=== PATIENT | male | born 1955 | race Caucasian/White ===

== ENCOUNTER → 2017-02-20 | Outpatient (CLI) | payer BC ==
--- NOTE | 2017-02-20 13:35 | P.STRESS ---
- Stress Test Note Stress Test Results/Findings: Exam Performed: stress echo exercise with con Exam Date: 02/20/17 Reason for Exam: SHORTNESS OF BREATH Height: 5 ft 10 in Weight: 102.512 kg Protocol: SONIDO Stage: 4 Duration of Exercise: 9:30 Resting Heart Rate: 66 Resting Blood Pressure: 149/60 Maximum Achieved Heart Rate: 145 Maximum Achieved Blood Pressure: 220/111 85% PMHR: 137 100% PMHR: 161 METS: 11.1 Technologist Comment: Stress Test Results/Findings: Baseline EKG showed sinus rhythm with CT interval and QRS duration. Blood pressure at rest is 149/60 with pulse rate of 66. Patient walked on the Sonido protocol for 9 minutes and 30 seconds achieving a maximal heart rate of 145. EKGs taken during and after the x-ray did not reveal any changes to sized ischemia. Echo data: Based on echo images showed normal wall motion and thickening. X- rays echo images showed augmentation of wall motion and thickening in all the segments. Final impression: #1. Negative stress test. #2. Negative stress echo.
--- NOTE | 2017-02-21 16:38 | ECHOS ---
Stress Test Results/Findings: Exam Performed: stress echo exercise with con Exam Date: 02/20/17 Reason for Exam: SHORTNESS OF BREATH Height: 5 ft 10 in Weight: 102.512 kg Protocol: SONIDO Stage: 4 Duration of Exercise: 9:30 Resting Heart Rate: 66 Resting Blood Pressure: 149/60 Maximum Achieved Heart Rate: 145 Maximum Achieved Blood Pressure: 220/111 85% PMHR: 137 100% PMHR: 161 METS: 11.1 Technologist Comment: Stress Test Results/Findings: Baseline EKG showed sinus rhythm with TX interval and QRS duration. Blood pressure at rest is 149/60 with pulse rate of 66. Patient walked on the Sonido protocol for 9 minutes and 30 seconds achieving a maximal heart rate of 145. EKGs taken during and after the x-ray did not reveal any changes to sized ischemia. Echo data: Based on echo images showed normal wall motion and thickening. X- rays echo images showed augmentation of wall motion and thickening in all the segments. Final impression: #1. Negative stress test. #2. Negative stress echo. MARIA G
== END ==
LOC: RADNMMAIN 10:34
PROVIDERS: ATTEND Family Medicine
DX: R06.02 Shortness of breath (principal)
CPT/HCPCS: 93017; 93350

== ENCOUNTER → 2018-09-06 | Outpatient (CLI) | payer BC ==
--- NOTE | 2018-09-06 13:43 | MR ---
EXAMINATION TYPE: MR Prostate wo/w con DATE OF EXAM: 09/06/2018 COMPARISON: None. IMAGE QUALITY: Suboptimal but repeat not required. INDICATION: Prostate CA PSA: 1.91 ng/ml on May 14, 2018 Recent Biopsy and Date: June 26, 2018 Pathology Report (If Applicable): Maria Esther grade 3+4 left base to moderate-sized 10 mm, 15% TECHNIQUE: Examination was performed using a 3T MRI without an endorectal coil. Multiparametric imaging was perf ormed with T2 mutliplanar sequences, axial diffusion weighted imaging and dynamic contrast enhanced i maging, utilizing 10 mL intravenous Gadavist gadolinium contrast. FINDINGS: There is no clinically significant cancer identified. PROSTATE VOLUME: 5.6 cm SI x 3.9 cm AP x 3.8 cm LR Vol= 44.4 cc PSA DENSITY: 5.328 ng/ml/cc T1 weighted images show some hyperintense signal in the lateral left aspect mid to apical segments co nsistent with residual postbiopsy hemorrhage. The peripheral zone shows some vague areas of hypointensity on ADC mapping without mild to moderate h ypointense areas or areas of increased signal on diffusion-weighted imaging. The central transitional zone shows marked heterogeneity with heterogeneous signal intensity that has some obscured margins difficult to accurately categorize particularly in the right and left base. No areas of suspicious restricted diffusion are present. Seminal vesicles are symmetric and felt within normal limits. No suspicious adjacent adenopathy is id entified. Bladder shows no significant wall thickening or trabeculations. Diverticula in the sigmoid colon are present. There is vacuum disc phenomenon with mild to moderate d isc space narrowing and posterior disc herniation L5-S1 level. Tiny fat-containing left inguinal anel ia incidentally noted. IMPRESSION: A focus of clinically significant cancer is not identified. Highest Assessment Category: 3 MRI Stage: T2 N 0 M 0 based on review of pelvic images. False negative rates for MRI range from 5-20% depending on risk profile. Assessment Categories: 1 ? Very low (clinically significant cancer is highly unlikely to be present) 2 ? Low (clinically significant cancer is unlikely to be present) 3 ? Intermediate (the presence of clinically significant cancer is equivocal) 4 ? High (clinically significant cancer is likely to be present) 5 ? Very high (clinically significant cancer is highly likely to be present) Locations: PZ = peripheral zone; TZ = transition zone CZ=central zone; AFS = anterior fibromuscular stroma a=anterior half (i.e. PZa=anterior half of peripheral zone); pm= posterior medial (i.e PZpm) pl = postero-lateral (i.e. PZpl); p = posterior half (i.e. TZp) ; a = anterior half (i.e TZa or P Za) Other: N=no or no; E= equivocal; Y=yes EPE = extraprostatic extension NVB = neurovascular bundle NA = not applicable/not available
== END | disposition home or self-care (01) ==
LOC: RADMRIMAIN 08:40
PROVIDERS: ATTEND Radiology Radiation Oncology
DX: C61 Malignant neoplasm of prostate (principal)
CPT/HCPCS: 72197; A9585

== ENCOUNTER → 2018-09-12 | Outpatient (CLI) | payer BC ==
[2018-09-12 10:50] LABS: Basophils # (A) 0.1 k/uL (0-0.2); Basophils % (A) 1 %; Eosinophils # (A) 0.1 k/uL (0-0.7); Eosinophils % (A) 2 %; HCT 42.5 % (39.0-53.0); HGB 14.4 gm/dL (13.0-17.5); Lymphocytes # (A) 1.3 k/uL (1.0-4.8); Lymphocytes % (A) 25 %; MCH 30.5 pg (25.0-35.0); MCHC 33.8 g/dL (31.0-37.0); MCV 90.3 fL (80.0-100.0); Mean Platelet Volume 7.6; Monocytes # (A) 0.4 k/uL (0-1.0); Monocytes % (A) 7 %; Neutrophils # (A) 3.3 k/uL (1.3-7.7); Neutrophils % (A) 64 %; Platelet Count 271 k/uL (150-450); RBC 4.71 m/uL (4.30-5.90); RDW 13.2 % (11.5-15.5); WBC 5.2 k/uL (3.8-10.6)
[2018-09-12 10:51] LABS: African American GFR (CKD) >90 (>60 ml/min/1.73 sqM); Anion Gap 8 mmol/L; Blood Urea Nitrogen 21 mg/dL (9-20); Calcium 9.8 mg/dL (8.4-10.2); Carbon Dioxide 27 mmol/L (22-30); Chloride 106 mmol/L (98-107); Glucose 97 mg/dL (74-99); Sodium 141 mmol/L (137-145)
== END | disposition home or self-care (01) ==
LOC: LABPAT 10:01
PROVIDERS: ATTEND Urology
DX: Z01.818 Encounter for other preprocedural examination (principal); Z79.899 Other long term (current) drug therapy; C61 Malignant neoplasm of prostate
CPT/HCPCS: 80048; 85025

== ENCOUNTER 2018-09-13 06:34 | Day surgery (SDC) | payer BC ==
[2018-09-11 12:47] VITALS: BMI 32.3
--- NOTE | 2018-09-12 18:09 | P.GSHP ---
History of Present Illness H&P Date: 09/12/18 Chief Complaint: Prostate cancer The patient is a 62-year-old white male with a family history of prostate cancer. His PSA level recently louie to 1.91, up from 0.89. He underwent a prostate ultrasound with biopsies. Prostate volume was 35.6 mL. One of 12 biopsies showed Maria Esther 7 (3+4) adenocarcinoma. Following a lengthy study of alternative treatment options, he has elected to be treated with IM RT. He now comes for placement of fiducial gold markers and SpaceOAR hydrogel implant. It is anticipated that he will begin radiation therapy on 10/15/2018. - Genitourinary (Male) Genitourinary: Reports erectile dysfunction, Reports urinary frequency Past Medical History Past Medical History: Cancer, Hypertension Additional Past Medical History / Comment(s): Current Prostate Cancer. History of Any Multi-Drug Resistant Organisms: None Reported Past Surgical History: Back Surgery, Orthopedic Surgery Additional Past Surgical History / Comment(s): Surgery to C7 for ruptured disc with cadavar graft, left shoulder rotator cuff repair, left knee scope, lumbar laminectomy. Past Anesthesia/Blood Transfusion Reactions: No Reported Reaction Past Psychological History: No Psychological Hx Reported Smoking Status: Never smoker Past Alcohol Use History: Occasional Past Drug Use History: None Reported - Past Family History Sister(s) Family Medical History: Cancer Additional Family Medical History / Comment(s): Lung cancer. Brother(s) Family Medical History: Cancer Additional Family Medical History / Comment(s): Prostate cancer. Medications and Allergies Home Medications Medication Instructions Recorded Confirmed Type Ibuprofen 600 mg PO BID PRN 09/11/18 09/11/18 History Lisinopril 20 mg PO QAM 09/11/18 09/11/18 History Garrard (Unknown Dose) 1 - 2 tab PO DIRECTED PRN 09/11/18 09/11/18 History Allergies Allergy/AdvReac Type Severity Reaction Status Date / Time cephalexin [From Keflex] Allergy Rash/Hives Verified 09/11/18 12:38 Penicillins Allergy Rash/Hives Verified 09/11/18 12:38 Surgical - Exam - General well developed, well nourished, no distress - Respiratory normal respiratory effort - Genitourinary normal penis with no external lesions, testicles non-tender - Rectum Rectum: normal sphincter tone, no masses, other (Left-sided prostate nodule) - Psychiatric oriented to time, oriented to person, oriented to place, speech is normal, memory intact Assessment and Plan (1) Adenocarcinoma of prostate Status: Acute Code(s): C61 - MALIGNANT NEOPLASM OF PROSTATE SNOMED Code(s): 143699191 Plan: The patient will undergo implantation of fiducial gold markers and SpaceOAR hydrogel implant. The procedure has been reviewed in detail with the patient, including the rationale and potential risks. These include anesthesia, bleeding, infection, and rectal perforation.
[~2018-09-13 06:34] MED LIST: DEXAMETHASONE SOD PHOSPHATE 10 MG/ML 1 ML VIAL IV ONE; HYDROmorphone 0.5 MG/0.5 ML SYRINGE IVP PRN; LACTATED RINGERS 1,000 ML IV SCH; LIDOCAINE 1% 20 ML VIAL (10MG/ML) FOR IV START INTRADERMA PRN; MIDAZOLAM 2 MG/2 ML VIAL IV PRN; ONDANSETRON 4 MG/2 ML VIAL IVP ONE; SCOPOLAMINE 1.5MG/72HR PATCH TRANSDERM ONE
[2018-09-13] MEDS ORDERED: SUCCINYLCHOLINE CHLORIDE 100 MG/5 ML SYR IV ONE (07:19)
[2018-09-13] MEDS ORDERED: LIDOCAINE 1% INJ 10MG/ML (20 ML MDV) ONE (07:19)
[2018-09-13] MEDS ORDERED: fentaNYL (PF) 50 MCG/ML 2 ML AMP ONE (07:19)
[2018-09-13] MEDS ORDERED: MIDAZOLAM 2 MG/2 ML VIAL ONE (07:19)
[2018-09-13] MEDS ORDERED: PROPOFOL 10 MG/ML 20 ML VIAL IV ONE (07:19)
[2018-09-13] MEDS ORDERED: ePHEDrine SULFATE/0.9% NACL/PF 50 MG/5 ML SYRINGE IV ONE (07:19)
[2018-09-13] MEDS ORDERED: LEVOFLOXACIN 500MG-D5W PMX 500 MG in DEXTROSE/WATER 1 100ML.BAG IVPB STA (07:38)
[2018-09-13] MEDS ORDERED: LEVOFLOXACIN 750MG-D5W PMX 750 MG/150 ML BAG IVPB ONE (07:50)
[2018-09-13 09:14] VITALS: TEMP 97.9
[2018-09-13 09:18] VITALS: RESP 16
--- NOTE | 2018-09-13 09:36 | P.OP ---
Date of Procedure: 09/13/18 Preoperative Diagnosis: Prostate cancer Postoperative Diagnosis: Same Procedure(s) Performed: Aborted implantation of fiducial gold markers and SpaceOAR hydrogel implant Anesthesia: RUDDYA Surgeon: Star Garcia Estimated Blood Loss (ml): 0 IV fluids (ml): 500 Pathology: none sent Condition: stable Disposition: PACU Indications for Procedure: The patient is a 62-year-old white male with a family history of prostate cancer. His PSA level recently louie to 1.91, up from 0.89. He underwent a prostate ultrasound with biopsies. Prostate volume was 35.6 mL. One of 12 biopsies showed Brewster 7 (3+4) adenocarcinoma. Following a lengthy study of alternative treatment options, he has elected to be treated with IM RT. He now comes for placement of fiducial gold markers and SpaceOAR hydrogel implant. It is anticipated that he will begin radiation therapy on 10/15/2018. Operative Findings: Unable to perform procedure due to nonfunctional ultrasound. Description of Procedure: The patient was taken to the operating room and placed in the dorsolithotomy position, with his legs supported in Naseem stirrups. A [employer] ultrasound probe was placed intrarectally. However, the image was intermittent and suboptimal. Multiple phone calls were made to a [employer] manufacturer's representative, but it was not possible to troubleshoot and make the ultrasound unit functional. Ultimately, an ultrasound unit from the x-ray department was obtained. However, this could be utilized only for transrectal needle guidance, whereas the procedure was to be performed via a transperineal approach. Therefore, the procedure was aborted. The patient was awakened and transferred to the recovery room in stable condition.
[2018-09-13 10:12] VITALS: BP 128/66; PULSE 65
== END 2018-09-13 10:28 | disposition home or self-care (01) ==
LOC: OR 06:34
PROVIDERS: ATTEND Urology
DX: C61 Malignant neoplasm of prostate (principal); Z53.8 Procedure and treatment not carried out for other reasons; N52.9 Male erectile dysfunction, unspecified; R35.0 Frequency of micturition; I10 Essential (primary) hypertension; Z80.42 Family history of malignant neoplasm of prostate; Z80.1 Family history of malignant neoplasm of trachea, bronchus and lung; Z79.1 Long term (current) use of non-steroidal anti-inflammatories (NSAID); Z79.891 Long term (current) use of opiate analgesic; Z79.899 Other long term (current) drug therapy; Z88.1 Allergy status to other antibiotic agents; Z88.0 Allergy status to penicillin
CPT/HCPCS: 55874; 84153; J2250; J1100; J2405; J2001; J3010; J1956; J0330; J2704

== ENCOUNTER → 2024-09-06 | Outpatient (CLI) | payer MEDICARE, OTHER ==
--- NOTE | 2024-09-06 12:51 | CT ---
EXAMINATION TYPE: CT shoulder LT wo con DATE OF EXAM: 09/06/2024 12:17 PM COMPARISON: . None CLINICAL INDICATION: Male, 68 years old with history of LEFT M75.122 COMPLETE ROTATR-CUFF TEAR/RUPTR OF LE; PH[facility], LT shoulder rotator cuff pre surgical TECHNIQUE: Axial images were obtained of the CT shoulder LT wo con, Additional coronal and sagittal r eformatted images and soft tissue and bone window were obtained for review. 3-D reconstruction was cr eated on a separate workstation. Contrast used: mL of , (None if empty) Oral contrast used: (None if empty) CT DLP: 363.90 mGycm, Automated exposure control for dose reduction was used. FINDINGS: There is atrophy changes of the supraspinatus muscle. There is acetabularization of the acr omion with subacromial humeral interval which measures 1 mm. Surgical changes/anchors are seen in the lateral humeral head. There is mild atrophy changes of the infraspinatus muscle also present. No megan dence of fracture. Mild degeneration changes of the glenohumeral joint, clavicular joint with osteoph yte formation and joint space narrowing. IMPRESSION: 1. No evidence of fracture. 2. Evidence of full-thickness rotator cuff tear of the left supraspinatus and likely infraspinatus t o with atrophy changes of the muscles and acetabularization of the acromion with narrowing of the acr omiohumeral interval. [facility], , 09/06/2024 12:48 PM
== END | disposition home or self-care (01) ==
LOC: RADCTMAIN 11:18
PROVIDERS: ATTEND Orthopaedic Surgery Sports Medicine
DX: M75.122 Complete rotator cuff tear or rupture of left shoulder, not specified as traumatic (principal)